=== PATIENT | female | born 1965 | race Two or more races ===

== ENCOUNTER → 2017-08-19 | Outpatient (CLI) | payer BC ==
[~2017-08-19] MED LIST: LEVO50TA5 PO
[2017-08-19 15:37] LABS: HEMATOCRIT 42.1 % (34.6-47.8); HEMOGLOBIN 14.2 g/dL (11.7-16.4)
[2017-08-19 15:49] LABS: BLOOD UREA NITROGEN 12 mg/dL (7-18)
== END | disposition home or self-care (01) ==
LOC: STAR 14:38
PROVIDERS: ATTEND Obstetrics & Gynecology Female Pelvic Medicine and Reconstructive Surgery
DX: Z01.818 Encounter for other preprocedural examination (principal); N32.81 Overactive bladder; N39.3 Stress incontinence (female) (male); N36.41 Hypermobility of urethra
CPT/HCPCS: 36415; 71020; 80048; 85025; 93005

== ENCOUNTER 2017-09-06 10:40 | Day surgery (SDC) | payer BC ==
[~2017-09-06] VITALS: Ht 154.9 cm; Wt 75.8 kg
[~2017-09-06 10:40] MED LIST changes: +CEFAZOLIN 1,000 MG ONE; +DEXAMETHASONE 4 MG/ML, 1ML ONE; +ONDANSETRON 2MG/ML, 2ML ONE; +PROPOFOL 10 MG/ML, 20ML ONE
[2017-09-06] MEDS ORDERED: LACTATED RINGERS 1,000 ML IV SCH ×2 (11:37→13:41)
[2017-09-06] MEDS ORDERED: THROMBIN 5,000 UNIT VIAL TP ONE (12:42)
[2017-09-06] MEDS ORDERED: MIDAZOLAM 1 MG/ML, 2ML ONE (12:43)
[2017-09-06] MEDS ORDERED: FENTANYL PF 100 MCG/2ML ONE ×2 (12:43→13:25)
[2017-09-06] MEDS ORDERED: GENTAMICIN 80 MG/2 ML ONE (12:57)
[2017-09-06] MEDS ORDERED: FLUORESCEIN SODIUM 500 MG/5 ML ONE (12:57)
[2017-09-06] MEDS ORDERED: VANCOMYCIN 500 MG ONE (12:57)
[2017-09-06] MEDS ORDERED: KETOROLAC 30 MG/1 ML ONE (13:26)
[2017-09-06] MEDS ORDERED: LIDOCAINE-MPF 2% ,5ML ONE (13:26)
[2017-09-06] MEDS ORDERED: HYDROmorphone 1 MG/ML, 1ML IV PRN (13:30)
[2017-09-06] MEDS ORDERED: PROMETHAZINE 25 MG/ML, 1ML IV PRN (13:30)
[2017-09-06] MEDS ORDERED: MIDAZOLAM 1 MG/ML, 2ML IV PRN (13:30)
[2017-09-06] MEDS ORDERED: MEPERIDINE/PF 25MG/0.5ML IVPush PRN (13:30)
[2017-09-06] MEDS ORDERED: FENTANYL PF 100 MCG/2ML IV PRN (13:30)
[2017-09-06] MEDS ORDERED: ONDANSETRON 2MG/ML, 2ML IVPush PRN ×2 (13:30→14:00)
[2017-09-06] MEDS ORDERED: LABETALOL 5MG/ML, 20ML IV PRN (13:30)
[2017-09-06] MEDS ORDERED: DIAZEPAM 5 MG/ML, 2ML IVPush PRN (13:30)
[2017-09-06] MEDS ORDERED: METOCLOPRAMIDE 5 MG/ML, 2ML IV PRN (13:30)
[2017-09-06] MEDS ORDERED: ACETAMINOPHEN 325 MG TABLET PO PRN (13:30)
[2017-09-06] MEDS ORDERED: LORazepam 2 MG/ML, 1ML IVPush PRN (13:30)
[2017-09-06] MEDS ORDERED: hydrALAzine 20 MG/ML, 1ML IV PRN (13:30)
[2017-09-06] MEDS ORDERED: OXYcodone 5 MG/5 ML ORAL.SOL UDC PO PRN (13:30)
[2017-09-06] MEDS ORDERED: ALBUTEROL/IPRATROPIUM 2.5MG/0.5MG, 3 ML NPPB PRN (13:30)
[2017-09-06] MEDS ORDERED: BUPIVACAINE/PF 0.25% INFIL ONE (13:32)
[2017-09-06] MEDS ORDERED: HYDROcodone/APAP 5/325 TABLET PO PRN (14:00)
[2017-09-06] MEDS ORDERED: IBUPROFEN 600 MG TABLET PO PRN (14:00)
[2017-09-06] MEDS ORDERED: ACETAMINOPHEN 650 MG/20.3 ML UDC ONE (14:11)
[2017-09-06] MEDS ORDERED: EPINEPHRINE 1 MG/ML, 1ML ONE (15:34)
[2017-09-06] MEDS ORDERED: BUPIVACAINE/PF 0.25% ONE (15:34)
== END 2017-09-06 16:30 ==
LOC: OUT 10:40
PROVIDERS: ATTEND Obstetrics & Gynecology Female Pelvic Medicine and Reconstructive Surgery
DX: N39.3 Stress incontinence (female) (male) (principal); I10 Essential (primary) hypertension; E03.9 Hypothyroidism, unspecified; Z98.890 Other specified postprocedural states; Z91.040 Latex allergy status
CPT/HCPCS: 57288; J0171; J0690; J1100; J1580; J1885; J2250; J2405; J2704; J3010; J3370; J3490; C1771